=== PATIENT | female | born 1970 | race Caucasian/White ===

== ENCOUNTER 2018-05-01 06:54 | Day surgery (SDC) | payer BC ==
[~2018-05-01 06:54] MED LIST: Lidocaine 1%/Sod Bicarbonate in NS 8.4% 1 ML Syringe IDERM PRN; Sodium Chloride 0.9% 10 ML Syringe FLUSH PRN
[2018-05-01] MEDS ORDERED: Lidocaine 1% with EPINEPHrine 1:100,000 20 ML MDV ONE (07:06)
[2018-05-01] MEDS ORDERED: Sodium Chloride 0.9% 50 ML SDV ONE (07:07)
--- NOTE | 2018-05-01 07:24 | PCM.PREANE ---
Preanesthetic Assessment - Anesthesia/Transfusion/Family Hx Anesthesia History: Prior Anesthesia Without Reaction Family History of Anesthesia Reaction: No Transfusion History: No Prior Transfusion(s) - Review of Systems General: No Symptoms Pulmonary: No Symptoms Cardiovascular: No Symptoms Gastrointestinal: No Symptoms Neurological: No Symptoms Other: Reports: Thyroid Problems (hypo) - Physical Assessment NPO Status Date: 04/30/18 NPO Status Time: 00:00 Pulse: 83 O2 Sat by Pulse Oximetry: 95 Respiratory Rate: 16 Blood Pressure: 123/86 Temperature: 36.5 C Height: 1.68 m Weight: 97.6 kg ASA Class: 2 Mental Status: Alert & Oriented x3 Airway Class: Mallampati = 1 Dentition: Reports: Normal Dentition Thyro-Mental Finger Breadths: 2 Mouth Opening Finger Breadths: 3 ROM/Head Extension: Full Lungs: Clear to Auscultation, Normal Respiratory Effort Cardiovascular: Regular Rate, Regular Rhythm, No Murmurs - Allergies Allergies/Adverse Reactions: Allergies Allergy/AdvReac Type Severity Reaction Status Date / Time No Known Allergies Allergy Verified 04/27/18 13:26 - Anesthesia Plan Pre-Op Medication Ordered: None - Acknowledgements Anesthesia Type Planned: General Anesthesia Pt an Appropriate Candidate for the Planned Anesthesia: Yes Alternatives and Risks of Anesthesia Discussed w Pt/Guardian: Yes Pt/Guardian Understands and Agrees with Anesthesia Plan: Yes PreAnesthesia Questionnaire HEENT History: Reports: Impaired Vision, Other (See Below) Other HEENT History: contacts, glasses Cardiovascular History: Reports: None Respiratory History: Reports: None Gastrointestinal History: Reports: None Genitourinary History: Reports: None JOINT FINISHER History: Reports: Other (See Below) Other OB/BYN History: enlarged uterus, , vaginal lump, year vaginitis Musculoskeletal History: Reports: None Neurological History: Reports: None Psychiatric History: Reports: Other (See Below) Other Psychiatric History: fatigue Endocrine/Metabolic History: Reports: Hypothyroidism Hematologic History: Reports: Other (See Below) Other Hematologic History: blood clotting disorder Immunologic History: Reports: None Oncologic (Cancer) History: Reports: Breast Dermatologic History: Reports: None - Past Surgical History Head Surgeries/Procedures: Reports: None Cardiovascular Surgical History: Reports: None Respiratory Surgical History: Reports: None Female Surgical History: Reports: None Male Surgical History: Reports: None Endocrine Surgical History: Reports: None Neurological Surgical History: Reports: None Musculoskeletal Surgical History: Reports: None Oncologic Surgical History: Reports: Mastectomy Dermatological Surgical History: Reports: None - HOME MEDS Home Medications: Home Meds Aspirin [Halfprin] 81 mg PO DAILY 04/27/18 [History] Docusate Sodium [Stool Softener] 100 mg PO DAILY 04/27/18 [History] Levothyroxine 25 mcg PO DAILY 04/27/18 [History] Tamoxifen Citrate 20 mg PO DAILY 04/27/18 [History] - CURRENT (IN HOUSE) MEDS Current Meds: Current Medications Lactated Ringer's (Ringers, Lactated) 1,000 mls @ 125 mls/hr IV ASDIRECTED PIEDAD Stop: 05/01/18 23:00 Lidocaine/Sodium Bicarbonate (Buffered Lidocaine 1% In Ns 8.4%) 0.25 ml IDERM ONETIME PRN PRN Reason: Prior to IV Start Stop: 05/01/18 18:00 Sodium Chloride (Saline Flush) 10 ml FLUSH ASDIRECTED PRN PRN Reason: Keep Vein Open Stop: 05/01/18 18:00 Discontinued Medications Lidocaine/Epinephrine (Xylocaine 1% With Epinephrine 1:100,000) Confirm Administered Dose 20 ml .ROUTE .STK-MED ONE Stop: 05/01/18 07:07 Sodium Chloride (Normal Saline) Confirm Administered Dose 50 ml .ROUTE .STK-MED ONE Stop: 05/01/18 07:08
[2018-05-01] MEDS ORDERED: Ondansetron 4 MG/2 ML SDV ONE (07:30)
[2018-05-01] MEDS ORDERED: Rocuronium 50 MG/5 ML Vial ONE (07:30)
[2018-05-01] MEDS ORDERED: fentaNYL 250 MCG/5 ML SDV ONE ×2 (07:31→08:36)
[2018-05-01] MEDS ORDERED: Midazolam 1 MG/ML 2 ML SDV ONE (07:31)
[2018-05-01] MEDS ORDERED: Propofol 200 MG/20 ML SDV ONE (07:31)
[2018-05-01] MEDS ORDERED: ceFAZolin 1 GM Vial ONE (07:35)
[2018-05-01] MEDS: Lactated Ringers 1,000 ML IV SCH ×2 (07:35→12:02)
[2018-05-01] MEDS ORDERED: HYDROmorphone 0.5 MG/0.5 ML Syringe ONE ×2 (08:01)
[2018-05-01] MEDS ORDERED: diphenhydrAMINE 50 MG/ML SDV ONE (08:12)
[2018-05-01] MEDS ORDERED: Dexamethasone 4 MG/ML 5 ML MDV ONE (08:18)
[2018-05-01] MEDS ORDERED: Lactated Ringers 1,000 ML ONE (08:37)
[2018-05-01] MEDS ORDERED: Ketorolac 30 MG/ML SDV ONE (08:51)
[2018-05-01] MEDS ORDERED: Acetaminophen/oxyCODONE 325-5 MG Tab PO PRN (09:13)
[2018-05-01] MEDS ORDERED: Ondansetron 4 MG/2 ML SDV IVPUSH PRN (09:13)
--- NOTE | 2018-05-01 09:19 | PCM.OPNOTE ---
- General Post-Op/Procedure Note Date of Surgery/Procedure: 05/01/18 Operative Procedure(s): Total vaginal hysterectomy with bilateral salpingo- oophorectomy Findings: Uterus is enlarged approximately 8 weeks' size. Ovaries were streak ovaries bilaterally. Fallopian tubes were small no external abnormalities noted on the uterus, fallopian tubes or ovaries Pre Op Diagnosis: 1. Thickened endometrium. 2. Simple endometrial hyperplasia without atypia. 3. Abnormal uterine bleeding. 4. History of tamoxifen use in therapy of breast cancer Post-Op Diagnosis: Same Anesthesia Technique: General ET Tube Other Anesthesia Type: Marcaine 0.5%20 mL totallocal Primary Surgeon: Theo Ling Secondary Surgeon: Ab Ardon Anesthesia Provider: Bo Medellin Consumer Education Specialist: Kaye Liu Reason Consumer Education Specialist Was Necessary: Assistance, retraction, patient safety, quality of care Role of Consumer Education Specialist: Same as reason for cashier assistant Pathology: Uterus tubes and ovaries sent in one specimen container Fluid Replacement, Intraop: 1,100 EBL in mLs: 150 Complications: None Condition: Good Free Text/Narrative:: Surgery duration: 53 minutes Procedure: The patient was placed in supine position on the operating table. General endotracheal anesthesia was accomplished. After positioning, and adequate prep and drape, the procedure was then performed. Sterile speculum was placed in the vagina and cervix was visualized. Cervix was injected with lidocaine quarter percent with [id number] mL used. A full circumference incision was made in the cervical epithelium. The bladder was pushed well back off cervix. Posterior cul-de-sac was then entered sharply without problems. Left uterosacral was crossclamped with a Enseal vessel closure system. The left uterosacral and then the right uterosacral ligament pedicles were developed using the Enseal system. The anterior cul-de-sac was then entered without problems and the uterine vasculature, cardinal ligament and broad ligament then developed using Enseal vessel closure system. The uterus was inverted at this time and upper broad ligament fallopian tube pedicles were crossclamped with Mitzi clamps and further developed with the Enseal vessel closure system. Specimen was totally removed. Left and right fallopian tube was normal but small in appearance.. Using Enseal vessel closure system each of the tubes was then removed and sent with the specimen. The Enseal vessel closure system was used to remove both ovaries. Ovaries were found to be very small to the point of being streak ovaries bilaterally. The patient was found to be hemostatically intact at this time. Vaginal cuff was sutured for hemostatic reasons with a running locked suture of 0 Monocryl from the 2 o'clock position to the 10 o'clock position posteriorly. Vaginal cuff was then closed from right to left side with a running locked suture of 0 Monocryl. Patient was returned to supine position and awakened from general endotracheal anesthesia. She tolerated the procedure was then left the operating room in satisfactory condition.
[2018-05-01] MEDS ORDERED: HYDROmorphone 0.5 MG/0.5 ML Syringe IVPUSH PRN (09:23)
[2018-05-01] MEDS ORDERED: fentaNYL 100 MCG/2 ML SDV IVPUSH PRN (09:23)
--- NOTE | 2018-05-01 09:24 | PCM.POSTAN ---
POST ANESTHESIA ASSESSMENT - MENTAL STATUS Mental Status: Alert, Oriented - VITAL SIGNS Pulse Rate: 86 SaO2: 94 Resp Rate: 9 Blood Pressure: 100/66 Temperature: 36.6 C - RESPIRATORY Respiratory Status: Respiratory Rate WNL, Airway Patent, O2 Saturation Stable, Supplemental Oxygen - CARDIOVASCULAR CV Status: Pulse Rate WNL, Blood Pressure Stable - GASTROINTESTINAL GI Status: No Symptoms - PAIN Pain Score: 0 - POST OP HYDRATION Hydration Status: Adequate & Stable - OBSERVATIONS Free Text/Narrative:: no anesthesia complications noted
== END 2018-05-01 13:50 | disposition home or self-care (01) ==
LOC: JD.SDS 06:54
PROVIDERS: ATTEND Obstetrics & Gynecology
DX: N80.0 Endometriosis of uterus (principal); N88.8 Other specified noninflammatory disorders of cervix uteri; N72 Inflammatory disease of cervix uteri; N83.312 Acquired atrophy of left ovary; N83.311 Acquired atrophy of right ovary; N73.6 Female pelvic peritoneal adhesions (postinfective); E03.9 Hypothyroidism, unspecified; C50.919 Malignant neoplasm of unspecified site of unspecified female breast; Z79.810 Long term (current) use of selective estrogen receptor modulators (SERMs); Z79.82 Long term (current) use of aspirin; Z79.899 Other long term (current) drug therapy; Z92.21 Personal history of antineoplastic chemotherapy
CPT/HCPCS: 58262; A9270; J0690; J1100; J1170; J1200; J1885; J2250; J2405; J2704; J3010; J7120

== ENCOUNTER 2020-02-23 12:45 | Emergency (ER) | payer BC, OTHER ==
--- NOTE | 2020-02-23 13:09 | EDM.PDOC ---
ED HPI GENERAL MEDICAL PROBLEM - General Chief Complaint: Abdominal Pain Stated Complaint: STOMACH PAIN/REES SENT FOR CT Time Seen by Provider: 02/23/20 12:56 Source of Information: Reports: Patient History Limitations: Reports: No Limitations - History of Present Illness INITIAL COMMENTS - FREE TEXT/NARRATIVE: 49-year-old female presents to the ED with diffuse lower abdominal pain mostly felt suprapubically and into the right lower quadrant. She believes it started on the evening of , February 19. No associated fever or chills. No decrease in appetite. Some relief with bowel movement or voiding. Patient was sent over from [facility] where she was seen by Dr. Gonzales walk-in clinic this morning. Her white count was minimally elevated at 10.9 68% neutrophils recorded. Hemoglobin 14.0 with hematocrit of 43.2. Glucose was 81 with a BUN of 15. Creatinine was 1.0. BUN/creatinine ratio is 14.6. Sodium 139 with potassium of 4.3. Chloride 105 with a bicarb of 24. Calcium 9.2 GFR was 57 CRP was markedly elevated at 55 .Urinalysis reportedly was negative. Not received a copy of the urinalysis however. Pre-states the pain is worse when she was ge tting in and out of the vehicle worse when she stands up in the right lower quadrant and perhaps her lower back. Has had previous total abdominal hysterectomy and BSO was done transvaginally with laparoscopic assist no other abdominal surgery. Onset: Gradual Onset Date: 02/20/20 (She felt mild discomfort suprapubically and right lower quadrant on the evening of February 19) Duration: Day(s):, Getting Worse, Waxing/Waning (Is with certain positions and worse with walking.) Location: Reports: Abdomen (Right lower quadrant and suprapubic area of the abdomen.) Quality: Reports: Ache Severity: Moderate (Out of 10.) Improves with: Reports: Rest Worsens with: Reports: Movement (With walking and lying on her right side) Context: Reports: Other (Onset over the last 3 days). Denies: Activity, Exercise, Lifting, Sick Contact, Trauma Associated Symptoms: Reports: No Other Symptoms, Other. Denies: Chest Pain, Cough, cough w sputum, Fever/Chills, Headaches (Feels hungry), Loss of Appetite, Malaise, Nausea/Vomiting, Rash, Seizure, Shortness of Breath, Syncope Treatments HOSPITAL WARD CLERK: Reports: Other (see below) (None.) - Related Data Allergies Allergy/AdvReac Type Severity Reaction Status Date / Time No Known Allergies Allergy Verified 02/23/20 12:56 Home Meds: Home Meds Aspirin [Halfprin] 81 mg PO DAILY 04/27/18 [History] Levothyroxine 25 mcg PO DAILY 04/27/18 [History] Tamoxifen Citrate 20 mg PO QPM 04/27/18 [History] Cefdinir [Omnicef] 300 mg PO BID #18 cap 02/23/20 [Rx] metroNIDAZOLE [Flagyl] 500 mg PO ONETIME #1 tab 02/23/20 [Rx] metroNIDAZOLE [Flagyl] 500 mg PO Q8H #18 tab 02/23/20 [Rx] Past Medical History HEENT History: Reports: Impaired Vision, Other (See Below) Other HEENT History: contacts, glasses Cardiovascular History: Reports: None Respiratory History: Reports: None Gastrointestinal History: Reports: None Genitourinary History: Reports: None COMMERCIAL CLEANER History: Reports: Other (See Below) Other COMMERCIAL CLEANER History: enlarged uterus, , vaginal lump, year vaginitis Musculoskeletal History: Reports: None Neurological History: Reports: None Psychiatric History: Reports: Other (See Below) Other Psychiatric History: fatigue Endocrine/Metabolic History: Reports: Hypothyroidism (On levothyroxine supplement.) Hematologic History: Reports: Other (See Below) Other Hematologic History: blood clotting disorder--Developed a DVT at Port-A-Cath site up into the internal jugular vein right side. This precipitated removal of the Port-A-Cath. History of chemotherapy periphera veins right arm. Immunologic History: Reports: None Oncologic (Cancer) History: Reports: Breast (Remarry left breast carcinoma diagnosed in 2012 treated with radical mastectomy and lymph nodes were positive in her left axilla. Right breast revealed scar tissue and was removed prophylactically. Patient remains on Tamoxifen daily.) Dermatologic History: Reports: None - Past Surgical History Head Surgeries/Procedures: Reports: None Cardiovascular Surgical History: Reports: None Respiratory Surgical History: Reports: None Female Surgical History: Reports: Hysterectomy, Mastectomy Other Female Surgeries/Procedures: breast cancer 2012, double mastectomy Endocrine Surgical History: Reports: None Neurological Surgical History: Reports: None Musculoskeletal Surgical History: Reports: None Oncologic Surgical History: Reports: Mastectomy Dermatological Surgical History: Reports: None Social & Family History - Family History Family Medical History: Noncontributory - Living Situation & Occupation Living situation: Reports: Occupation: Employed ED ROS GENERAL - Review of Systems Review Of Systems: See Below Constitutional: Denies: Fever, Chills, Malaise, Weakness, Fatigue, Decreased Ap petite, Weight Loss HEENT: Reports: No Symptoms Respiratory: Reports: No Symptoms Cardiovascular: Reports: No Symptoms Endocrine: Reports: Fatigue GI/Abdominal: Reports: Abdominal Pain (. Pubic and right lower quadrant over the last 3 days.), Flatus (See more flatus than normal.). Denies: Constipation, Diarrhea, Decreased Appetite, Difficulty Swallowing : Reports: No Symptoms, Other (Seems to get some relief of the suprapubic discomfort with voiding.) Musculoskeletal: Reports: Back Pain (Low back pain.) Skin: Reports: No Symptoms Neurological: Reports: No Symptoms Psychiatric: Reports: No Symptoms Hematologic/Lymphatic: Reports: No Symptoms Immunologic: Reports: No Symptoms ED EXAM, GI/ABD - Physical Exam Exam: See Below Exam Limited By: No Limitations General Appearance: Alert, WD/WN, No Apparent Distress, Other (Temperature is 36.9 heart rate 97 and sinus. Respiratory 16 with O2 sats of 98% BP 142/87) Eyes: Bilateral: Normal Appearance (No scleral icterus no blepharal pallor.) Throat/Mouth: Normal Inspection, Normal Lips, Normal Oropharynx Head: Atraumatic, Normocephalic Neck: Normal Inspection, Supple, Full Range of Motion. No: Lymphadenopathy (L), Lymphadenopathy (R) Respiratory/Chest: No Respiratory Distress, Lungs Clear, Normal Breath Sounds, No Accessory Muscle Use, Other (And has had bilateral mastectomies and was without any breast tissue or reconstruction. Previous Port-A-Cath scar right upper anterior chest.) Cardiovascular: Normal Peripheral Pulses, Regular Rate, Rhythm, No Edema, No Gallop, No Murmur, No Rub GI/Abdominal Exam: Non-Tender, No Organomegaly ('s are little hyperactive in all 4 quadrants compared to the norm.), No Distention, Guarding (Very mild guarding right lower quadrant), Tender (McBurney's point on deep palpation.), Abnormal Bowel Sounds, Other (Moderately obese. Surgical scar at the umbilicus from her vaginal hysterectomy and BSO.). No: Rigid, Rebound Back Exam: Normal Inspection, Full Range of Motion. No: CVA Tenderness (L), CVA Tenderness (R) Extremities: Normal Inspection, Normal Range of Motion, Non-Tender, No Pedal Edema Neurological: Alert, Oriented, CN II-XII Intact, Normal Cognition, Normal Gait, Normal Reflexes Psychiatric: Normal Affect, Normal Mood Skin Exam: Warm, Dry, Intact, Normal Color, No Rash Course - Vital Signs Last Recorded V/S: Last Vital Signs Temp 36.9 C 02/23/20 12:53 Pulse 97 02/23/20 12:53 Resp 16 02/23/20 12:53 BP 142/87 H 02/23/20 12:53 Pulse Ox 98 02/23/20 12:53 - Orders/Labs/Meds Orders: Active Orders 24 hr Category Date Time Status Abdomen Pelvis w Cont [CT] Stat Exams 02/23/20 13:06 Taken Dextrose 5%-0.9% NaCl [Dextrose 5%-Normal Saline] 1,000 Med 02/23/20 13:15 Active ml IV ASDIRECTED Sodium Chloride 0.9% [Saline Flush] Med 02/23/20 13:15 Active 10 ml FLUSH ONETIME PRN Medication Orders Dextrose/Sodium Chloride (Dextrose 5%-Normal Saline) 1,000 mls @ 150 mls/hr IV ASDIRECTED PIEDAD Last Admin: 02/23/20 14:25 Dose: 150 mls/hr Documented by: TISHA Sodium Chloride (Saline Flush) 10 ml FLUSH ONETIME PRN PRN Reason: Keep Vein Open Last Admin: 02/23/20 13:57 Dose: 10 ml Documented by: SLAVA Labs: Laboratory Tests 02/23/20 Range/Units 15:00 Urine Color Yellow (Yellow) Urine Appearance Clear (Clear) Urine pH 6.5 (5.0-8.0) Ur Specific [place] 1.015 (1.005-1.030) Urine Protein Negative (Negative) Urine Glucose (UA) Negative (Negative) Urine Ketones Trace H (Negative) Urine Occult Blood Trace-lysed H (Negative) Urine Nitrite Negative (Negative) Urine Bilirubin Negative (Negative) Urine Urobilinogen 0.2 (0.2-1.0) Ur Leukocyte Esterase 1+ H (Negative) Urine RBC 5-10 H (0-5) /hpf Urine WBC 10-20 H (0-5) /hpf Ur Squamous Epith Cells 5-10 H (0-5) /hpf Urine Bacteria Moderate H (FEW) /hpf Urine Mucus Few (FEW) /hpf Meds: Medications Generic Name Dose Route Start Last Admin Trade Name Freq PRN Reason Stop Dose Admin Dextrose/Sodium Chloride 1,000 mls @ 150 mls/hr 02/23/20 13:15 02/23/20 14:25 Dextrose 5%-Normal Saline IV 150 mls/hr ASDIRECTED PIEDAD Administration Sodium Chloride 10 ml 02/23/20 13:15 02/23/20 13:57 Saline Flush FLUSH 10 ml ONETIME PRN Administration Keep Vein Open Discontinued Medications Generic Name Dose Route Start Last Admin Trade Name Freq PRN Reason Stop Dose Admin Sodium Chloride 1,000 mls @ 150 mls/hr 02/23/20 13:15 Normal Saline IV ASDIRECTED PIEDAD Metronidazole 500 mg/ Premix 100 mls @ 100 mls/hr 02/23/20 14:19 02/23/20 14:26 IV 02/23/20 15:18 100 mls/hr ONETIME ONE Administration Ceftriaxone Sodium 2 gm/ 100 mls @ 200 mls/hr 02/23/20 14:20 02/23/20 14:25 Sodium Chloride IV 02/23/20 14:49 200 mls/hr ONETIME ONE Administration Iopamidol 100 ml 02/23/20 13:15 02/23/20 13:57 Isovue-300 (61%) IVPUSH 02/23/20 13:16 100 ml ONETIME ONE Administration Metronidazole 500 mg 02/23/20 15:25 Flagyl PO 02/23/20 15:26 ONETIME ONE - Radiology Interpretation Free Text/Narrative:: 49-year-old female presents to the ED for evaluation of suprapubic right lower quadrant abdominal pain that has been very gradual in onset over the last 3 days. No associated fever or chills. She was seen at the [facility] by Dr. Gonzales this morning and had laboratory and urinalysis done. Labs revealed a slightly elevated white count of 10.9 with 68% neutrophils. Chemistry was normal other than a markedly elevated CRP at 55. Exam reveals tenderness over McBurney's point on deep palpation with no rebound tenderness or rigidity. Has not yet eaten today. Last ate last evening. Plan we will proceed with CT of the abdomen and pelvis with IV contrast only. - Re-Assessments/Exams Free Text/Narrative Re-Assessment/Exam: 02/23/20 14:22 CT of the abdomen and pelvis performed with IV contrast only. Visualized portions of the lungs and heart are within normal limits. Liver is normal with no intraductal dilatation. Gallbladder contains multiple large gallstones. Pancreas appears normal spleen appears normal stomach appears normal the visualized portions of the colon reveal increased stool throughout the right hemicolon and transverse colon. Appendix is well visualized and is within normal limits with no periappendiceal infiltrate. In the rectal vault there is evidence of diverticulitis of the sigmoid colon with surrounding luis- colonic infiltrate. No abscess or free air appreciated. She will be given Flagyl 500 mg IV and Rocephin 2gm IV as Levaquin is contraindicated due to its interaction in prolonging the QT interval with tamoxifen. And it of late she will be discharged on Flagyl 500 mg 3 times daily for 7 days and Omnicef 300 mg twice daily for 9 days. 02/23/20 14:30 CT has been over read by the radiologist. He agrees with my interpretation and had nothing further to add. 02/23/20 15:35 Urinalysis shows trace of lysed occult blood. 1+ leukocyte esterase 5-10 RBCs per high-power field and 10-20 WBCs per high-power field. Moderate bacteria appreciated. Urine culture will be ordered. Of note these results came back at the time patient was discharged. She was placed on Omnicef twice daily which will cover urinary tract infection. Departure - Departure Time of Disposition: 15:30 Disposition: Home, Self-Care 01 Condition: Fair Clinical Impression: Diverticulitis of sigmoid colon Cholelithiasis Qualifiers: Cholelithiasis location: gallbladder Cholecystitis acuity: chronic Biliary obstruction: without biliary obstruction - Discharge Information *PRESCRIPTION DRUG MONITORING PROGRAM REVIEWED*: Not Applicable *COPY OF PRESCRIPTION DRUG MONITORING REPORT IN PATIENT MINERVA: Not Applicable Prescriptions: metroNIDAZOLE [Flagyl] 500 mg PO ONETIME #1 tab metroNIDAZOLE [Flagyl] 500 mg PO Q8H #18 tab Cefdinir [Omnicef] 300 mg PO BID #18 cap Instructions: Diverticulitis, [id number] Referrals: Rigoberto Erickson MD [Primary Care Provider] - Forms: ED Department Discharge Additional Instructions: Evaluation in the emergency room today in regards to diffuse suprapubic and right lower quadrant abdominal pain that seemed to start on , 19 February. No associated fever or chills. Evaluation by Dr. Gonzales at the walk-in clinic suggested possible enthesitis and you were sent to the ED for further evaluation particularly for imaging of the abdomen. Blood cell count was minimally elevated at the clinic. Here you we identified that you had bowel sounds quite active in all 4 quadrants and history suggest that you still had a good appetite. These 2 things are against a diagnosis of appendicitis. CT scan of the abdomen pelvis was performed with IV contrast only and demonstrated multiple gallstones as a coincidental finding. It revealed a normal appendix. Increased stool throughout the right hemicolon and transverse colon compatible with mild constipation. I would suggest picking up some MiraLAX and taking 1 scoop or 17 g once daily to keep the bowels regular. CT scan identified the source of your pain to be diverticulitis of the sigmoid colon which is in the midline of the lower abdomen which would correspond to your suprapubic abdominal pain. There is no signs of abscess formation or perforation. You were treated with initial dose of Flagyl 500 mg intravenously in the emergency room and Rocephin 2 g IV. Treatment as an outpatient will be Flagyl 500 mg 3 times daily for another week with 1 further tablets to be taken tonight at bedtime with some food. You will need to fill prescriptions tomorrow for antibiotics Flagyl 500 mg 3 times daily and Omnicef 300 mg twice daily for 9 more days to clear up infection. Expect about 3 days before abdominal pain resolves completely as it takes a while for the antibiotics to work. May use Motrin 600 mg every 6 hours to relieve pain if necessary. Return to the ED if you develop worsening pain in the next 48 or 72 hours or severe chills or fever. Follow-up with your primary care provider care provider in about 2 weeks time and consider having a colonoscopy arranged if you have not had one in the last 5 years. Sepsis Event Note (ED) - Evaluation Sepsis Screening Result: No Definite Risk - Focused Exam Vital Signs: Vital Signs Temp Pulse Resp BP Pulse Ox 02/23/20 12:53 36.9 C 97 16 142/87 H 98 - My Orders Last 24 Hours: My Active Orders 02/23/20 13:06 Abdomen Pelvis w Cont [CT] Stat 02/23/20 13:15 Dextrose 5%-0.9% NaCl [Dextrose 5%-Normal Saline] 1,000 ml IV ASDIRECTED Sodium Chloride 0.9% [Saline Flush] 10 ml FLUSH ONETIME PRN - Assessment/Plan Last 24 Hours: My Active Orders 02/23/20 13:06 Abdomen Pelvis w Cont [CT] Stat 02/23/20 13:15 Dextrose 5%-0.9% NaCl [Dextrose 5%-Normal Saline] 1,000 ml IV ASDIRECTED Sodium Chloride 0.9% [Saline Flush] 10 ml FLUSH ONETIME PRN
[2020-02-23] MEDS ORDERED: Iopamidol 612 MG/ML 100 ML Bottle IVPUSH ONE (13:15)
[2020-02-23] MEDS ORDERED: Sodium Chloride 0.9% 10 ML Syringe FLUSH PRN (13:15)
[2020-02-23] MEDS ORDERED: Dextrose 5%-0.9% NaCl 1,000 ML IV SCH (13:15)
[2020-02-23] MEDS ORDERED: Sodium Chloride 0.9% 1,000 ML IV SCH (13:15)
[2020-02-23] MEDS ORDERED: metroNIDAZOLE/Normal Saline 500 MG in Premix Bag 1 BAG IV ONE (14:19)
[2020-02-23] MEDS ORDERED: cefTRIAXone 2 GM in Sodium Chloride 0.9% 100 ML IV ONE (14:20)
[2020-02-23] MEDS ORDERED: metroNIDAZOLE 500 MG Tab PO ONE (15:25)
--- NOTE | 2020-02-24 09:56 | CT ---
CT abdomen and pelvis Technique: Multiple axial sections were obtained from above the dome of the diaphragm inferiorly through the pubic symphysis. Delayed images were also obtained. Intravenous contrast was utilized. No oral contrast has been given. Comparison: No prior CT abdomen or pelvis exam is available. Findings: Liver shows diffuse fatty infiltration. No focal abnormality is appreciated within the liver. Multiple gallstones are noted. Visualized lung bases show nothing acute. Spleen appears normal. Adrenal glands show no nodule. Pancreas is within normal limits. Kidneys show symmetric contrast enhancement. Delayed images shows contrast within the ureters and within the bladder. Aorta shows no aneurysm. No retroperitoneal adenopathy or mesenteric abnormalities are seen. Appendix is seen which is normal. Bowel wall thickening seen within the sigmoid colon. This occurs in an area of diverticuli. Mild inflammatory change is noted in this area. Findings are felt compatible with diverticulitis. No free fluid is seen. Bone window settings were reviewed. No acute osseous finding is appreciated. Impression: 1. Mild wall thickening and diverticuli within the sigmoid colon. Mild surrounding inflammatory change is seen which is compatible with diverticulitis. 2. Fatty infiltration within the liver and gallstones. 3. No other acute finding is seen. Diagnostic code #3 This report was dictated in MDT I agree with preliminary report from [facility], finalized on 02/23/20, 3:26 PM Central Daylight Time
== END 2020-02-23 15:37 | disposition home or self-care (01) ==
LOC: JD.ED 12:45
DX: K57.32 Diverticulitis of large intestine without perforation or abscess without bleeding (principal); K80.20 Calculus of gallbladder without cholecystitis without obstruction; E03.9 Hypothyroidism, unspecified; Z79.82 Long term (current) use of aspirin; Z79.899 Other long term (current) drug therapy
CPT/HCPCS: 74177; 81001; 87086; 96365; 96368; 99284; A9270; J0696; J3490; J7042; J7050; Q9967; 99285